=== PATIENT | male | born 1965 | race Caucasian/White ===

== ENCOUNTER 2020-12-08 21:55 | Observation (INO) | payer BC ==
[~2020-12-08] VITALS: Ht 167.6 cm; Wt 95.5 kg
[~2020-12-08 21:55] MED LIST: CLEOCIN HCL300 MG PO; GLUCOPHAGE500 MG/TAB PO; LOFIBRA160 MG PO; PRAVACHOL 20MG20 MG PO; PRINIVIL20 MG PO
[2020-12-08 22:12] LABS: BASO # 0.1 (0.0-0.2); BASO % 1.2 % (0.0-2.0); EOS # 0.2 (0.0-0.7); EOS % 3.3 % (0-4.0); GRAN # 3.6 (1.4-6.5); GRAN % 49.2 % (42.2-75.2); HEMATOCRIT 42.4 % (42.0-52.0); HEMOGLOBIN 14.3 g/dl (13.5-18.0); LYMPH # 2.9 (1.2-3.4); LYMPH % 39.6 % (20.0-51.0); MEAN CELL VOLUME 81 fl (80.0-100.0); MEAN CORPUSCULAR HEMOGLOBIN 27 pg (27.0-31.0); MEAN CORPUSCULAR HGB CONC 34 g/dl (33.0-37.0); MEAN PLATELET VOLUME 11.4 fl (7.4-10.4); MONO # 0.5 (0.1-0.6); MONO % 6.3 % (1.7-9.3); PLATELET COUNT 220 K/mm3 (130-400); RED BLOOD COUNT 5.21 M/mm3 (4.20-5.60); REDCELL DISTRIBUTION WIDTH-CV 13.6 % (11.5-14.5)
[2020-12-08 22:30] LABS: PROTHROMBIN TIME 11.2 SECONDS (9.7-12.8)
[2020-12-08 22:41] LABS: ALANINE AMINOTRANSFERASE 41 U/L (4-49); ALBUMIN 4.4 gm/dL (3.5-5.0); ALKALINE PHOSPHATASE 66 U/L (50-136); ANION GAP 10 mmol/L (7-16); AST,SGOT 28 U/L (15-37); BILIRUBIN,TOTAL 0.6 mg/dL (0.0-1.0); BLOOD UREA NITROGEN 17 mg/dL (9-20); CALCIUM 9.6 mg/dL (8.4-10.2); CARBON DIOXIDE 26 mmol/L (22-30); CHLORIDE 105 mmol/L (98-107); CREATININE, serum 0.77 (0.66-1.25); GLUCOSE 160 mg/dL (74-106); POTASSIUM 3.3 mmol/L (3.4-5.0); SODIUM 141 mmol/L (137-145); TOTAL PROTEIN 7.2 gm/dL (6.4-8.2)
[2020-12-08 22:52] LABS: TROPONIN-I < 0.012 ng/mL (0.000-0.035)
[2020-12-08] MEDS ORDERED: FLOMAX 0.40.4 MG/CAP PO (23:01)
[2020-12-08] MEDS ORDERED: PRINZIDE 12.5 M1 TA1 PO (23:01)
[2020-12-08] MEDS ORDERED: JARDIANCE25 PO (23:02)
[2020-12-08] MEDS ORDERED: LIPITOR 40MG TA40 MG PO (23:02)
[2020-12-08] MEDS ORDERED: TRICOR 48MG48 MG PO (23:04)
[2020-12-08] MEDS ORDERED: NORVASC 10MG10 MG PO (23:04)
[2020-12-08] MEDS ORDERED: K-DUR20 MEQ PO (23:05)
[2020-12-08] MEDS ORDERED: ACTOS30 MG PO (23:05)
[2020-12-08] MEDS ORDERED: VASCEPA1 GM PO (23:38)
[2020-12-09 00:39] VITALS: BP 139/83; PULSE 66; TEMP 98
[2020-12-09 00:56] LABS: COLLECTION METHOD CLEAN CATCH
[2020-12-09 01:02] LABS: PH 5 (5-8); SQUAMOUS EPITHELIAL None Seen /hpf; URINE APPEARANCE Clear; URINE BACTERIA None Seen /hpf; URINE BILIRUBIN Negative (NEGATIVE); URINE BLOOD Negative (NEGATIVE); URINE COLOR Yellow; URINE GLUCOSE 3+ (NEGATIVE); URINE KETONE Trace (NEGATIVE); URINE LEUKOCYTE ESTERASE Negative (NEGATIVE); URINE NITRATE Negative (NEGATIVE); URINE PROTEIN(semi-quant) Negative (NEGATIVE); URINE RBC 0-2 /hpf; URINE UROBILINOGEN Negative (NEGATIVE)
--- NOTE | 2020-12-09 01:31 | NUR ---
Received patient from ED at 0040H via wheelchair. Patient is alert and oriented. He denies chest pain right now. Started NS at 30ml/hr on his left hand. Informed patient on all the medications and labs that he will get tonight. Instructed him that he is on NPO. He verbalizes understanding. Provided patient with socks and urinal. Lungs are clear. Nitro ointment applied on his mid chest. Call light within reach.
[2020-12-09 03:53] VITALS: BP 96/62; PULSE 58; TEMP 98
[2020-12-09 03:59] LABS: BASO # 0.1 (0.0-0.2); BASO % 1.4 % (0.0-2.0); EOS # 0.2 (0.0-0.7); EOS % 3.5 % (0-4.0); GRAN % 47.7 % (42.2-75.2); HEMATOCRIT 38.5 % (42.0-52.0); HEMOGLOBIN 12.9 g/dl (13.5-18.0); LYMPH # 2.5 (1.2-3.4); LYMPH % 40.2 % (20.0-51.0); MEAN CELL VOLUME 82 fl (80.0-100.0); MEAN CORPUSCULAR HEMOGLOBIN 27 pg (27.0-31.0); MEAN CORPUSCULAR HGB CONC 34 g/dl (33.0-37.0); MEAN PLATELET VOLUME 10.9 fl (7.4-10.4); MONO # 0.4 (0.1-0.6); MONO % 6.9 % (1.7-9.3); PLATELET COUNT 193 K/mm3 (130-400); RED BLOOD COUNT 4.72 M/mm3 (4.20-5.60); REDCELL DISTRIBUTION WIDTH-CV 13.7 % (11.5-14.5)
[2020-12-09 04:09] LABS: CHOLESTEROL 124 mg/dL (120-200); CHOLESTEROL RISK RATIO 3.7; HDL CHOLESTEROL 33 mg/dL; LDL CHOLESTEROL 55 mg/dL; TRIGLYCERIDE 181 mg/dL
[2020-12-09 04:31] LABS: TROPONIN-I < 0.012 ng/mL (0.000-0.035)
--- NOTE | 2020-12-09 06:17 | NUR ---
Patient states he wasn't able to sleep. He denies chest pain. IV Potassium still on going. Maintained on NPO.
[2020-12-09 07:42] VITALS: BP 92/68; PULSE 57; TEMP 97.6
[2020-12-09 07:48] VITALS: BP 164/67; PULSE 79; TEMP 98.2
--- NOTE | 2020-12-09 07:50 | NUR ---
PT PLEASANT, AOX4, DENIES CHEST PAIN, DENIES DIZZINESS, FLUIDS AND POTASSIUM INFUSING. PT HAD LOW BP, ANITHA BRISCOE CALLED AND BP MEDS PLACED ON HOLD. PT NPO, TOOK OTHER PILLS WITH SIP OF WATER, ASSESSMENT PERFORMED, NO OTHER NEEDS.
[2020-12-09] MEDS ORDERED: ASPIRIN 81M81 MG/TA2 PO (09:55)
[2020-12-09 09:59] VITALS: BP 99/62; PULSE 54
--- NOTE | 2020-12-09 09:59 | NUR ---
REASSESSED BP, OLD NITRO PASTE REMOVED FROM CHEST.
--- NOTE | 2020-12-09 10:19 | NUR ---
Initial visit; Patient thanked Glue Clamp Operator for looking in on him and offering prayer and God's blessings. Glue Clamp Operator will follow up while patient is at [facility].
[2020-12-09 10:31] VITALS: BP 105/67
--- NOTE | 2020-12-09 11:01 | NUR ---
DISCHARGE EDUCATION PROVIDED, IV REMOVED, NO QUESTIONS AT THIS TIME. PT SPOUSE BROUGHT CLOTHES FOR PT. PT CHANGING CURRENTLY, WILL ESCORT OUT VIA ER ENTRANCE.
--- NOTE | 2020-12-09 11:14 | NUR ---
PT ESCORTED OUT VIA WHEELCHAIR WITH PT BELONGINGS.
== END 2020-12-09 11:15 | disposition home or self-care (01) ==
LOC: COL.ER 21:55 → MEDICAL 23:59
PROVIDERS: Emergency Medicine; Nurse Practitioner Family; ADMIT Student in an Organized Health Care Education/Training Program
DX: I20.9 Angina pectoris, unspecified (principal); R50.9 Fever, unspecified; E87.6 Hypokalemia; I10 Essential (primary) hypertension; I95.9 Hypotension, unspecified; E78.5 Hyperlipidemia, unspecified; E11.9 Type 2 diabetes mellitus without complications; E66.9 Obesity, unspecified; N40.0 Benign prostatic hyperplasia without lower urinary tract symptoms; Z87.891 Personal history of nicotine dependence; Z79.899 Other long term (current) drug therapy; Z79.84 Long term (current) use of oral hypoglycemic drugs
CPT/HCPCS: G0378; J1650; J3480; J7030

== ENCOUNTER → 2024-05-16 | Outpatient (CLI) | payer BC ==
[~2024-05-16] MED LIST changes: +ACTOS30 MG PO; +ASPIRIN 81M81 MG/TA2 PO; +FLOMAX 0.40.4 MG/CAP PO; +FLONASE NASAL S16 GM NS; +HCTZ12.5TAB PO; +JARDIANCE25 PO; +K-DUR20 MEQ PO; +K-TAB20 PO; +LIPITOR 40MG TA40 MG PO; +LOPRESSOR 225 MG/TAB PO; +LOVAZA1 GM PO; +NORVASC 10MG10 MG PO; +PRINIVIL40 MG PO; +PRINZIDE 12.5 M1 TA1 PO; +TOPROL XL100 MG PO; +TRICOR 48MG48 MG PO; +TRULICITY1.5 MG/0.5 SQ; +VASCEPA1 GM PO; +XYZAL5 MG PO
== END ==
LOC: COL.RAD 14:17
DX: F17.210 Nicotine dependence, cigarettes, uncomplicated (principal)